=== PATIENT | male | born 1960 | race Caucasian/White ===

== ENCOUNTER → 2016-10-04 | Outpatient (CLI) | payer BC ==
[~2016-10-04] MED LIST: CITA20TA9 PO; HYDR-2164 PO; IBUP-1324 PO; LISI10TA7 PO
--- NOTE | 2016-10-04 13:59 | DI ---
Indication: ITS.REASON: R60.0 EDEMA; I80.03; R20.8; R23.4; L98.8; I87.2; I83.893 PROCEDURE: US VENOUS DUPLEX, LOWER EXT RT: Encounter: Initial Comparison: July 03, 2016 Technique: Color Doppler duplex and grayscale sonographic imaging of the right lower extremity was performed. Findings: There is no evidence for acute deep venous thrombosis in the right thigh. Specifically, serial graded compression was performed from the inguinal ligament to the popliteal bifurcation, on the right thigh, demonstrating appropriate compressibility of the deep venous system. In addition, color and pulsed Doppler demonstrate appropriate spontaneous flow, variation with respiration, and augmentation with calf compression. At the ankle, normal flow is identified in the posterior tibial veins; these vessels are also normal in caliber. Greater saphenous vein is thrombosed just distal to its origin as expected status post procedure. Impression: No evidence of acute DVT in the right lower limb. .
== END ==
LOC: IMA 13:05
DX: I80.03 Phlebitis and thrombophlebitis of superficial vessels of lower extremities, bilateral (principal); I83.893 Varicose veins of bilateral lower extremities with other complications; I87.2 Venous insufficiency (chronic) (peripheral); L98.8 Other specified disorders of the skin and subcutaneous tissue; R20.8 Other disturbances of skin sensation; R23.4 Changes in skin texture; Z98.890 Other specified postprocedural states

== ENCOUNTER → 2016-11-04 | Outpatient (CLI) | payer BC ==
--- NOTE | 2016-11-04 11:19 | DI ---
Indication: ITS.REASON: I80.3 Phlebitis and thrombophlebitis of super; R20.8; R23.4; L98.8 PROCEDURE: US VENOUS DUPLEX, LOWER EXT LT: Encounter: Initial Comparison: None Technique: Color Doppler duplex and grayscale sonographic imaging of the left lower extremity was performed. Findings: There is no evidence for acute deep venous thrombosis in the left thigh. Specifically, serial graded compression was performed from the inguinal ligament to the popliteal bifurcation, on the left thigh, demonstrating appropriate compressibility of the deep venous system. In addition, color and pulsed Doppler demonstrate appropriate spontaneous flow, variation with respiration, and augmentation with calf compression. At the ankle, normal flow is identified in the posterior tibial veins; these vessels are also normal in caliber. The greater saphenous vein appears successfully ablated. Impression: No evidence of acute DVT in the left lower limb. .
== END ==
LOC: IMA 10:44
DX: M79.605 Pain in left leg (principal); R20.8 Other disturbances of skin sensation; R23.4 Changes in skin texture; L98.8 Other specified disorders of the skin and subcutaneous tissue